=== PATIENT | male | born 1980 | race Caucasian/White ===

== ENCOUNTER 2018-05-01 18:14 | Emergency (ER) | payer SELFPAY ==
[~2018-05-01 18:14] MED LIST: CYCL10 PO; HYDACE5 PO
== END 2018-05-01 19:24 | disposition left against medical advice (07) ==
LOC: ER 18:14
DX: Z53.21 Procedure and treatment not carried out due to patient leaving prior to being seen by health care provider (principal)

== ENCOUNTER → 2023-06-15 | Outpatient (CLI) | payer OTHER ==
[2023-06-15 21:14] LABS: Free Thyroxine 0.73 ng/dL (0.70-1.60)
[2023-06-15 21:24] LABS: Thyroid Stimulating Hormone 39.2 uIU/mL (0.360-4.800)
== END | disposition home or self-care (01) ==
LOC: LAB SHORT 17:22 → LAB 17:22
PROVIDERS: Nurse Practitioner Family
DX: E55.9 Vitamin D deficiency, unspecified (principal); E03.8 Other specified hypothyroidism
CPT/HCPCS: 82306; 84439; 84443

== ENCOUNTER → 2025-01-19 | Outpatient (CLI) | payer OTHER ==
[2025-01-23 20:19] LABS: Free Thyroxine 0.58 ng/dL (0.70-1.60); Thyroid Stimulating Hormone 5.47 uIU/mL (0.360-4.800); Triiodothyronine, Free 1.84 pg/mL (2.18-3.98)
== END | disposition home or self-care (01) ==
LOC: LAB SHORT 16:30 → LAB 16:30
PROVIDERS: Nurse Practitioner Family
DX: E89.0 Postprocedural hypothyroidism (principal)
CPT/HCPCS: 84439; 84443; 84481

== ENCOUNTER 2025-09-03 09:31 | Emergency (ER) | payer OTHER ==
[~2025-09-03] VITALS: Ht 177.8 cm; Wt 77.1 kg
[2025-09-03 10:09] VITALS: BP 121/78
[2025-09-03] MEDS ORDERED: Trimethoprim/Sulfamethoxazole DS Tab PO ONE (11:55)
[2025-09-03] MEDS ORDERED: SULTRIDS PO (12:04)
[2025-09-03] MEDS ORDERED: MUPIROCIN15 GM TOP (12:04)
== END 2025-09-03 12:30 | disposition left against medical advice (07) ==
LOC: ER 09:31
DX: L01.00 Impetigo, unspecified (principal); L03.011 Cellulitis of right finger; L03.114 Cellulitis of left upper limb; L03.311 Cellulitis of abdominal wall; L03.211 Cellulitis of face; L03.221 Cellulitis of neck; E89.0 Postprocedural hypothyroidism; Z53.29 Procedure and treatment not carried out because of patient's decision for other reasons
CPT/HCPCS: 99281; A9270